=== PATIENT | female | born 1990 | race Caucasian/White ===

== ENCOUNTER 2017-10-03 17:21 | Emergency (ER) | payer BC ==
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
[2017-10-03 18:08] LABS: PLATELET COUNT 271 10^3/uL (150-400)
[2017-10-03 23:12] VITALS: BP 113/71
--- NOTE | 2017-10-03 23:26 | ASMTLCPROG ---
Notes Note: Notes: TLC communicated with [facility]. Since pt. was evaluated in the [facility] also completed placement. Pt. was transferred to [facility] under the care of Dr. Janessa Rogers. Date Signed: 10/03/2017 11:25 PM Electronically Signed By:Noreen Sanchez
--- NOTE | 2017-10-03 23:29 | ASMTTCLDSP ---
TLC Discharge Disposition Disposition: Answers: Transfer Disposition Notes: Notes: [facility] COMPLETED PLACEMENT. PT WAS ACCEPTED AT [facility] UNDER THE CARE OF DR. DIANNE FONTAINE. Type of Hold: Answers: M1/72-hour Hold Hold initiated by: Answers: Other Notes: [facility] EVALAUTOR For Transfers, Accepting [facility] Facility: For Transfers, Accepting DIANNE FONTAINE Psychiatrist: For Transfers, Reason NO BEDS ON 3N Patient is Being Transferred: Date Signed: 10/03/2017 11:28 PM Electronically Signed By:Noreen Sanchez
== END 2017-10-03 23:40 ==
LOC: EDUNIT#
DX: F22 Delusional disorders (principal)
CPT/HCPCS: 80305; G0480